=== PATIENT | female | born 1970 | race Caucasian/White ===

== ENCOUNTER 2017-04-15 16:36 | Emergency (ER) | payer SELFPAY ==
[~2017-04-15] VITALS: Ht 162.6 cm; Wt 70.0 kg
[2017-04-15 16:45] VITALS: BP 134/63; PULSE 68; RESP 15; TEMP 98.2; O2SAT 98
[2017-04-15] MEDS ORDERED: oxyCODONE/ACETAMINOPHEN 5 MG/325 MG TAB PO ONE (19:30)
--- NOTE | 2017-04-15 19:35 | RADRPT ---
EXAM DATE/TIME: 04/15/2017 19:25 [facility] COMPARISON: No previous studies available for comparison. INDICATIONS : Right ankle pain and swelling after twisting ankle. MEDICAL HISTORY : None. SURGICAL HISTORY : None. ENCOUNTER: Initial ACUITY: 1 day PAIN SCORE: 8/10 LOCATION: Right ankle FINDINGS: Three view exam was performed of the right ankle. The bony structures are in normal alignment. Bony mineralization is normal. There is generalized soft tissue swelling. There is no oblique fractur e distal fibula extending into the base of the lateral malleolus. CONCLUSION: Oblique fracture distal fibula extending into the base of the lateral malleolus. Jose Hurst MD on April 15, 2017 at 19:32 Board Certified Radiologist. This report was verified electronically.
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
[2017-04-15] MEDS ORDERED: NYSTATIN 100,000 U/GM OINT 15 GM TUBE TOPICAL ONE (20:00)
--- NOTE | 2017-04-15 21:15 | RADRPT ---
EXAM DATE/TIME: 04/15/2017 21:05 [facility] COMPARISON: ANKLE RIGHT COMPLETE ([id number]), April 15, 2017, 19:25. INDICATIONS : Pain from twisting motion with ankle. MEDICAL HISTORY : None. SURGICAL HISTORY : None. ENCOUNTER: Initial ACUITY: 1 day PAIN SCORE: 9/10 LOCATION: Right ankle. FINDINGS: Distal fibular fracture is appreciated unchanged with overlying cast CONCLUSION: Overlying cast with distal fibular fracture unchanged anatomically aligned and well approximated Jose Hurst MD on April 15, 2017 at 21:12 Board Certified Radiologist. This report was verified electronically.
[2017-04-15] MEDS ORDERED: PERC5TAB12 PO (21:31)
== END 2017-04-15 22:42 | disposition home or self-care (01) ==
LOC: NEPK 16:36
DX: S82.64XA Nondisplaced fracture of lateral malleolus of right fibula, initial encounter for closed fracture (principal); X50.0XXA Overexertion from strenuous movement or load, initial encounter; Y93.02 Activity, running; Y92.521 Bus station as the place of occurrence of the external cause
CPT/HCPCS: 29515; 73610; 99283; E0113

== ENCOUNTER 2017-04-23 05:02 | Emergency (ER) | payer SELFPAY ==
[~2017-04-23] VITALS: Ht 167.6 cm; Wt 80.0 kg
[~2017-04-23 05:02] MED LIST: PERC5TAB12 PO
[2017-04-23 05:07] VITALS: BP 115/58; PULSE 68; RESP 18; TEMP 97.4; O2SAT 98
[2017-04-23] MEDS ORDERED: ONDANSETRON ODT 4 MG TAB PO ONE (05:30)
--- NOTE | 2017-04-23 06:29 | PD ---
HPI Chief Complaint: GI Complaint Time Seen by Provider: 05:23 Travel History International Travel<30 days: No Contact w/Intl Traveler<30days: No Traveled to known affect area: No History of Present Illness HPI This is a 46-year-old female who presents to the emergency department with multiple episodes of vomiting prior to arrival, constant, lasting about an hour with no associated abdominal pain, fevers or chills. She denies any diarrhea. She says she ate some [employer] last night which she thinks was bad. Her is sick with similar symptoms. PFSH Past Medical History Diminished Hearing: No Medical other: Yes (central spinal canal stenosis) Musculoskeletal: Yes (bulging disk) Tetanus Vaccination: < 5 Years ?: Not LMP: 04/16/2017 Dilation and Curettage (D&C): Yes (x2) Tubal Ligation: Yes Past Surgical History Tonsillectomy: Yes Other Surgery: Yes (polandal cyst removal) Social History Alcohol Use: No Tobacco Use: Yes Substance Use: No Allergies-Medications (Allergen,Severity, Reaction): Coded Allergies: ciprofloxacin (Verified Allergy, Unknown, 04/15/17) Reported Meds & Prescriptions Reported Meds & Active Scripts Active No Active Prescriptions or Reported Medications Review of Systems Except as stated in HPI: all other systems reviewed are Neg Physical Exam Narrative GENERAL:Well appearing, no acute distress SKIN: Focused skin assessment warm and dry. HEAD: Atraumatic. Normocephalic. EYES: Pupils equal and round. No injection or drainage. ENT: Moist mucous membranes NECK: Trachea midline. CARDIOVASCULAR: Regular rate and rhythm. No murmur appreciated. RESPIRATORY: Clear to auscultation. Breath sounds equal bilaterally. GASTROINTESTINAL: Abdomen soft, non-tender, nondistended. MUSCULOSKELETAL: No obvious deformities. NEUROLOGICAL: Awake and alert. No obvious cranial nerve deficits. Moving all extremities. PSYCHIATRIC: Appropriate mood and affect; insight and judgment normal. Data Data Last Documented VS Vital Signs Date Time Temp Pulse Resp B/P (MAP) Pulse Ox O2 Delivery O2 Flow Rate FiO2 04/23/17 05:07 97.4 68 18 115/58 (77) 98 Orders Orders Ondansetron Odt (Zofran Odt) (04/23/17 05:30) MDM Medical Decision Making Medical Screen Exam Complete: Yes Emergency Medical Condition: Yes Differential Diagnosis Gastroenteritis, pancreatitis, gastritis, food poisoning Narrative Course This is a 46-year-old female who presents to the emergency department with vomiting and nausea after eating [employer]. Her is sick with similar symptoms. She appears very well and has a benign exam. I don't think she requires any labs or diagnostics. She was given Zofran in the emergency department. I suspect there is some secondary gain regarding her visit as she and her are homeless. Patient will be discharged home. Diagnosis Primary Impression: Food poisoning Qualified Codes: T62.94XA - Toxic effect of unspecified noxious substance eaten as food, undetermined, initial encounter Patient Instructions: General Instructions Additional Instructions: If you develop lightheadedness, dizziness, persistent vomiting, inability to eat , or severe abdominal pain return to the emergency department. Followup with your primary care physician in 2-3 days if your symptoms have not resolved. Wash your hands aggressively after using the restroom as to not spread your illness to others. Do not return to work until your symptoms have resolved. Med/Other Pt SpecificInfo: No Change to Meds Scripts No Active Prescriptions or Reported Meds Disposition: 01 DISCHARGE HOME Condition: Stable Jade David MD Apr 23, 2017 06:29
[2017-04-23 06:36] VITALS: BP 107/55; PULSE 58; RESP 16; O2SAT 95
== END 2017-04-23 06:50 | disposition home or self-care (01) ==
LOC: NEPE 05:02
DX: T62.91XA Toxic effect of unspecified noxious substance eaten as food, accidental (unintentional), initial encounter (principal); Z88.1 Allergy status to other antibiotic agents; Z72.0 Tobacco use
CPT/HCPCS: 99283